=== PATIENT | female | born 1965 | race Hispanic/Latino ===

== ENCOUNTER → 2018-07-01 | Outpatient (CLI) | payer BC ==
--- NOTE | 2018-07-01 18:20 | Diagnostic Imaging Report ---
BILATERAL HEEL/CALCANEUS X-RAY - 4 VIEWS HISTORY: ^[id number] ^[id number] ^B/L HEEL PAIN COMPARISON: None available. FINDINGS: Bones: No acute displaced fracture. Osseous alignment is within normal limits. Joints: Enthesopathy within the posterolateral aspect of both calcaneus, measuring 4 mm on the right and 8 mm on the left. Soft tissues: The soft tissues appear unremarkable. IMPRESSION: Bilateral calcaneal enthesopathy, left greater than right. Signed by: Dr. Annie Coppola M.D. on 07/01/2018 6:17 PM
== END ==
LOC: RAD 16:36
PROVIDERS: ATTEND Family Medicine
DX: M79.672 Pain in left foot (principal); M79.671 Pain in right foot; M89.8X7 Other specified disorders of bone, ankle and foot

== ENCOUNTER 2021-05-05 21:43 | Emergency (ER) | payer BC ==
[~2021-05-05] VITALS: Ht 157.5 cm; Wt 81.6 kg
== END 2021-05-05 21:49 | disposition home or self-care (01) ==
LOC: ER 21:46
DX: M25.511 Pain in right shoulder (principal); M62.838 Other muscle spasm; I10 Essential (primary) hypertension
CPT/HCPCS: 99282